=== PATIENT | female | born 1935 | race Caucasian/White ===

== ENCOUNTER → 2016-07-08 | Outpatient (CLI) | payer MEDICARE, BC ==
[~2016-07-08] MED LIST: ACETAMINOPHEN PO; ALBUTEROL17 GM INH; ARAVA10 MG PO; ASPIRINEC; BACTRIM DS TABL1 TA1 PO; BENADRYL PO; CALCIUM 600 +1 EAC3 PO; CARDIZEM CD; CARDIZEM CD PO; CARDIZEM CD180 M1 PO; CHLORTHALIDONE25 MG PO; CITRACAL200 MG; CLEOCIN PO; CLINORIL PO; DAKIN'S MODIF1000 ML EXT; DARVOCET-N 1001 TAB; DARVOCET-N 1001 TAB PO; ENALAPRIL MALEA10 MG PO; ENALAPRIL MALEA20 MG PO; EPINASTINE 0.05% OU; ERYTHROMYCIN; FAMOTIDINE; FISH OIL 1,0001 CAP PO; FISH OIL300 MG PO; FLONASE16 GM; HCTZ; HCTZ PO; HYDRALAZINE HC100 MG PO; HYDROCHLOROTHIA25 MG PO; HYDROCODONE; IBUPROFEN; LORTAB 10/500 T1 TAB PO; MULTI-VITAMIN1 TAB; NASONEX17 GM; OXAPROZIN600 MG PO; PLAQUENIL200 MG PO; POSTURE600 MG PO; PREDNISONE5 M1 PO; PRILOSEC20 M1 PO; PRILOSEC20 MG PO; PROTONIX PO; PULMICORT200 MCG/AE; PULMICORT200 MCG/AE INH; SINGULAIR; SINGULAIR PO; SYSTANE 0.3-0.415 ML OU; TYLENOL ARTHRITES; VASOTEC PO; VIT B COMPLEX; VIT B-12 PO; VIT E PO; VITAMIN B 12 PO; VITAMIN B12-FO1 EACH PO; VITAMIN E400 UNI2 PO; [UNRECOGNIZED DRUG - OTHER] OU
--- NOTE | ~2016-07-08 | CR151 ---
[facility]. [facility] A Service of [facility] & [facility] RADIOLOGY TEXT RESULTS PATIENT: KARLA SHULTZ LOCATION: [facility] : 33 UNIT #: [id number] AGE: [address]: Elva Padilla METAL BURNISHER SEX: F ORDER DR: [id number] [place] [id number] MR#: [id number] Acc #: [id number] NAME: KARLA SHULTZ : 1935 SEX: F STUDY DATE/TIME: 07/08/2016 15:54 UNIT: [facility] ROOM: STUDY DESCRIPTION: CR Hip Min 2 Views Rt Attending Physician: Elva Padilla A.P.R.N. Referring Physician: Elva Padilla A.P.R.N. Ordering Physician: Elva Padilla A.P.R.N. Primary Care Physician: Elva Padilla A.P.R.N. MEDICAL IMAGING REPORT This report is preliminary unless electronic signature is present. EXAM Right hip series, 07/08/16 HISTORY Low back pain into right leg. FINDINGS AP radiograph of the pelvis is presented with frogleg view right hip. Moderate degenerative change lower lumbar spine. Bony ring of pelvis is intact. [id number] narrowing of bilateral hip joints. No fracture. No malalignment. The proximal femur is intact. Visualized bowel gas pattern normal. Calcified phleboliths in the pelvis. Periarticular soft tissues unremarkable. Extensive atherosclerotic arterial calcification. Dictated by... Nicolas Hernandez M.D. THIS IS AN ELECTRONICALLY VERIFIED REPORT Nicolas Hernandez M.D. at 07/09/2016 3:50 PM ELVIS/los TD: 07/09/2016 12:40 JOB #: [id number] MEDICAL IMAGING REPORT Page 1 of 1
--- NOTE | ~2016-07-08 | CR21 ---
[facility] A Service of [facility] & [facility] RADIOLOGY TEXT RESULTS PATIENT: KARLA SHULTZ LOCATION: [facility] : 33 UNIT #: [id number] AGE: [address]: Elva Padilla KOHINOOR OPERATOR SEX: F ORDER DR: [id number] [place] [id number] O MR#: [id number] Acc #: [id number] NAME: KARLA SHULTZ : 1935 SEX: F STUDY DATE/TIME: 07/08/2016 15:54 UNIT: [facility] ROOM: STUDY DESCRIPTION: CR Ankle Min 3 Views Rt Attending Physician: Elva Padilla A.P.R.N. Referring Physician: Elva Padilla A.P.R.N. Ordering Physician: Elva Padilla A.P.R.N. Primary Care Physician: Elva Padilla A.P.R.N. MEDICAL IMAGING REPORT This report is preliminary unless electronic signature is present. EXAM Right ankle series, 07/08/2016 HISTORY Right ankle pain. Low back pain into leg. 3 days ago. No injury. Entire right hip pain down to the right ankle. FINDINGS AP lateral and oblique radiographs of the right ankle are presented. Diminished bony mineralization more pronounced in the periarticular regions. No traumatic fracture or malalignment. No bony erosive or proliferative changes suggested. Ankle mortise joint is intact. Small plantar calcaneal spur. No acute appearing soft tissue abnormality. Extensive vascular calcification. Dictated by... Nicolas Hernandez M.D. THIS IS AN ELECTRONICALLY VERIFIED REPORT Nicolas Hernandez M.D. at 07/09/2016 3:50 PM ELVIS/floyd TD: 07/09/2016 12:01 JOB #: [id number] MEDICAL IMAGING REPORT Page 1 of 1
== END | disposition home or self-care (01) ==
LOC: SRAD 15:28
DX: M25.571 Pain in right ankle and joints of right foot (principal); M54.16 Radiculopathy, lumbar region
CPT/HCPCS: 73502; 73610